=== PATIENT | female | born 1955 | race Caucasian/White ===

== ENCOUNTER 2017-02-02 19:40 | Emergency (ER) | payer MEDICAID ==
[~2017-02-02 19:40] MED LIST: ASPIR 8181 MG PO; GENTAK3 MG/ML OU; GLYBURIDE2.5 MG PO; LISINOPRIL10 MG PO; METFORMIN HCL500 MG PO; PRILOSEC20 MG PO; ZITHROMAX Z-PA250 M2 PO
[2017-02-02 22:29] VITALS: BP 149/79
== END 2017-02-02 22:29 | disposition home or self-care (01) ==
LOC: ED 19:40
DX: L02.31 Cutaneous abscess of buttock (principal); I10 Essential (primary) hypertension; E11.9 Type 2 diabetes mellitus without complications
CPT/HCPCS: J2001

== ENCOUNTER 2018-05-12 12:17 | Emergency (ER) | payer MEDICAID ==
[~2018-05-12] VITALS: Ht 165.1 cm; Wt 93.4 kg
[2018-05-12 12:19] VITALS: BP 156/93; Ht 165.1 cm; Wt 93.4 kg
== END 2018-05-12 13:54 | disposition home or self-care (01) ==
LOC: ED 12:17
DX: H11.9 Unspecified disorder of conjunctiva (principal); I10 Essential (primary) hypertension; E11.9 Type 2 diabetes mellitus without complications

== ENCOUNTER 2018-10-12 10:47 | Emergency (ER) | payer MEDICAID ==
[~2018-10-12] VITALS: Ht 165.1 cm; Wt 96.2 kg
[2018-10-12 10:51] VITALS: Ht 165.1 cm; Wt 96.2 kg
[2018-10-12 13:06] VITALS: BP 133/77
== END 2018-10-12 13:06 | disposition home or self-care (01) ==
LOC: ED 10:47
DX: M54.5 Low back pain (principal); I10 Essential (primary) hypertension; E11.40 Type 2 diabetes mellitus with diabetic neuropathy, unspecified; Z90.710 Acquired absence of both cervix and uterus

== ENCOUNTER 2019-08-14 00:02 | Inpatient (IN) | payer MEDICAID ==
[~2019-08-14] VITALS: Ht 165.1 cm; Wt 95.8 kg
[~2019-08-14 00:02] MED LIST changes: -METFORMIN HCL500 MG PO; +METFORMIN HYDR500 M1 PO
[2019-08-14 00:11] VITALS: Ht 165.1 cm; Wt 95.8 kg
--- NOTE | 2019-08-14 00:14 | NUR ---
EKG IN PROGRESS
--- NOTE | 2019-08-14 00:17 | NUR ---
PT AMBULATED WITH STEADY GAIT TO RESTROOM TO PROVIDE URINE SAMPLE.
--- NOTE | 2019-08-14 00:18 | NUR ---
PT PRESENTED TO ED FOR SOB, EPIGASTRIC ABD PAIN THAT RADIATES TO MIDSTERNAL CHEST AND GENERALIZED BACK SINCE 9 PM. PT STATES PAIN WORSENS WHEN LAYING DOWN. PT STATES "WHEN I GET THE PAIN IT GOES INTO MY BACK AND FEELS LIKE MY LUNGS ARE BEING PRESSED". PT REPORTS FEELING "BLOATED" IN EPIGASTRIC AREA AND STATES "THIS HAS BEEN GOING ON FOR OVER A YEAR, I WENT TO MY DOCTOR AND THEY PUT THE MONITOR ON ME OVERNIGHT. THEY SAID NOTHING WAS WRONG WITH MY HEART". PT DENIES ANY NAUSEA, VOMITING, DIARRHEA. PT A&0X4, SPEAKING FULL CLEAR SENTENCES. PT BREATHING EVEN AND UNLABORED. AWAITING MSE. CM AND [address] PT NOTED NSR ON MONITOR. WILL CONTINUE TO MONITOR.
--- NOTE | 2019-08-14 00:20 | NUR ---
MSE COMPLETED BY MD OLSEN
[2019-08-14 01:07] LABS: BASOPHIL % 0.3 % (0-2); PLATELET COUNT 242 x10^3mcL (130-400); RED CELL DISTRIBUTION WIDTH 12.7 % (11.5-14.5)
[2019-08-14 01:12] LABS: CALCIUM 9.1 mg/dL (8.5-10.1); CARBON DIOXIDE 28.4 mmol/L (21-32); CHLORIDE SERUM 104 mmol/L (98-107); CREATININE SERUM 0.8 mg/dL (0.6-1.0); GFR1 > 60 mL/min; GLUCOSE SERUM 151 mg/dL (74-106); POTASSIUM SERUM 3.4 mmol/L (3.5-5.1); SODIUM SERUM 142 mmol/L (136-145)
[2019-08-14 01:17] LABS: ALBUMIN 3.8 g/dL (3.4-5.0); ALKALINE PHOSPHATASE 85 U/L (46-116); ALT/SGPT 108 U/L (14-59); AST/SGOT 143 U/L (15-37); BILIRUBIN TOTAL 0.83 mg/dL (0.20-1.00); LIPASE 175 IU/L (73-393); TOTAL PROTEIN, SERUM 7.4 g/dL (6.4-8.2)
--- NOTE | 2019-08-14 02:11 | NUR ---
PT STATES NO CHANGE IN PAIN AT THIS TIME. AWARE. AWAITING ORDERS.
--- NOTE | 2019-08-14 03:27 | NUR ---
US TECH AT BEDSIDE
[2019-08-14] MEDS ORDERED: TENORMIN25 MG PO (04:32)
[2019-08-14] MEDS ORDERED: NEU300 PO (04:34)
[2019-08-14] MEDS ORDERED: TYLENOL PO (04:36)
[2019-08-14] MEDS ORDERED: GLUCOTROL5 MG PO (04:41)
[2019-08-14] MEDS ORDERED: PRINIVIL20 MG PO (04:41)
[2019-08-14] MEDS ORDERED: OMEPRAZOLE40 M1 PO (04:42)
--- NOTE | 2019-08-14 05:17 | NUR ---
PT RESTING. DAUGHTER AT BEDSIDE.
--- NOTE | 2019-08-14 06:04 | NUR ---
ABX COMPLETED. PT RESTING WELL SPEAKING FULL CLEAR SENTENCES. STATES 0/10 PAIN. DAUGHTER AT BEDSIDE.
[2019-08-14 07:20] LABS: UA SPECIFIC GRAVITY <=1.005 (1.005-1.035); microscopic required? YES; urine erythrocyte TRACE (NEGATIVE)
--- NOTE | 2019-08-14 07:32 | NUR ---
REPORT GIVEN TO CONSTANTIN RAM. ALL QUESTIONS AND CONCERNS ADDRESSED AT THIS TIME
[2019-08-14 07:36] LABS: AMPHETAMINE QUAL UR NONE DETECTED (See below)
--- NOTE | 2019-08-14 07:45 | NUR ---
PT TRANSPORTED TO TELE FLOOR VIA [facility] ON PORTABLE CM BY ORALIA RAM AND OLIVIA RAM. CONSTANTIN RAM RESUMED CARE OF PT
--- NOTE | 2019-08-14 07:56 | NUR ---
RECEIVED PT FROM ED. A/OX4. DENIES ANY WAYNE OR DIZZZNESS AT THIS TIME. MED SURG. DENIES ANY CHEST PAIN/PRESSURE AT THIS TIME. RESPIRATIONS EQUAL AND UNLABORED ON RA. DENIES ANY SOB. PT STATES CAME IN FOR EPIGASTRIC PAIN, BUT SINCE RECEIVING PAIN MEDS IN ED PAIN HAS RESOLVED. PT DENIES ANY N/V AT THIS TIME. FAMILY AT BEDSIDE. MEDICATION RECONCILLATION UPDATED. WILL CONTINUE TO MONITOR. CALL LIGHT IN REACH. BED IN LOWEST POSITION.
--- NOTE | 2019-08-14 10:57 | NUR ---
PT SITTING UP IN BED. IV TO RAC UNABLE TO FLUSH. IV REMOVED CATHETER INTACT. NEW IV STARTED TO LFA. IV INFILTRATED WHEN FLUIDS WERE INITIATED
--- NOTE | 2019-08-14 12:20 | NUR ---
PT SITTING UP AT BEDSIDE. NO AUCTE RESP DISTRESS NOTED ON RA. PT DENIES ANY ABDOMINAL PAIN AT THIS TIME. PT DENIES ANY N/V. IV TO RFA PATENT AND INFUSING. IV ANTIBIOTICS INFUSING ORDERED. RANDDOM BLOOD GLUCOSE TAKEN WAS 104. FAMILY AT BEDSIDE. WILL CONTINUE TO MONITOR. CALL LIGHT IN REACH. BED IN LOWEST POSITION.
--- NOTE | 2019-08-14 12:33 | NUR ---
REPORT GIVEN TO [facility] IN OR. ALL QUESTIONS AND CONCERNS ADDRESSED. PT BEING TAKEN OFF FLOOR AROUND 1500. LALO WIPES GIVEN TO PT.
[2019-08-14 13:18] VITALS: BP 157/82
[2019-08-14 15:38] VITALS: BP 142/75
--- NOTE | 2019-08-14 15:40 | NUR ---
PT SITTING UP IN BED. NO ACUTE RESP DISTRESS NOTED ON RA. TEMPERATURE CHECKED WAS 102.2. COOLING MEASURES PROVIDED. MEDICATED PER EMAR. IV PATENT AND INFUSING. NO REDNESS OR SWELLING NOTED. WILL CONTINUE TO MONITOR. CALL LIGHT IN REACH. BED IN LOWEST POSITION.
--- NOTE | 2019-08-14 15:42 | NUR ---
PT ASKING TO HAVE FLU VACCINE ADMINISTERED AFTER SURGERY. SPOKE WITH LARISSA RODGERS TO CHANGE ADMINISTRATION TIME, PER VISHAL THERES A 3 HOUR WINDOW AND SHOULD BE OKAY TO GIVE MEDICATION LATER THIS EVENING.
--- NOTE | 2019-08-14 16:57 | NUR ---
PT SITTING UP AT BEDSIDE. NO ACUTE RESP DISTRESS NOTED ON RA. CONSENT FOR SURGERY OBTAINED. CONSENT FOR BLOOD TRANSFUSION OBTAINED. TEMPERATURE REASSESSED WAS 99.7 ORAL. COOLING MEASURES IN PLACE. PT STILL ASKING FOR FLU VACCINE ONCE SURGERY IS COMPLETE. SPOKE WITH PHARMACIST JUANITO TO CHANGE TIME TO LATER TONIGHT. FAMILY AT BEDSIDE. WILL CONTINUE TO MONITOR. CALL LIGHT IN REACH. BED IN LOWEST POSITION.
[2019-08-14 18:07] VITALS: BP 99/50
--- NOTE | 2019-08-14 18:56 | NUR ---
PT SITTING UP IN BED. NO ACUTE RESP DISTRESS NOTED ON RA. PT DENIES ANY PAIN AT THIS TIME. PT DENIES ANY N/V. COOLING MEASURES IN PLACE. IV TO RFA PATENT AND INFUSING. NO REDNESS OR SWELLING NOTED. FAMILY AT BEDSIDE. WILL ENDORSE CARE TO NOVELTY TWISTER OPERATOR RN. CALL LIGHT IN REACH. BED IN LOWEST POSITION.
--- NOTE | 2019-08-14 19:41 | NUR ---
RECEIVED PATIEN TIN BED AWAKE, ALERT AND ORIENTED WITH NO C/O ABDOMINAL DISCOMFORT AT THIS TIME. ABDOMEN ROUND AND NONTENDER WITH ACTIVE BOWEL SOUNDS. BREATHING EASY AND NONLABOR SATTING AT 95% RA. IV TO RFA INTACT AND INFUSING WELL WITH NO SIGN OF INFILTRATION. INSTRUCTED ON NPO FOR POSSIBLE SURGERY,CONSENT DIGNED. IV TO RFA INTACT AND INFUSINGW ELL. WILL CONTINUE TO MONITOR. FANILY MEMBERS AT BEDSIDE.
--- NOTE | 2019-08-14 20:23 | NUR ---
DOWN TO OR VIA GURNEY ACCOMPANIED BY OR STAFF AND FAMILY MEMBERS.
--- NOTE | 2019-08-14 23:39 | NUR ---
BACK FROM SURGERY ACCOMPANIED BY OR NURSES, AWAKE AND ORIENTED. MEDOCATED IN OR FOR POST OPERATIVE PAIN. MORPHINE 2MG IV GIVEN BEFORE PATIENT TRANSPORTED TO HER ROOM. WITH 5 INCISION STAPLED WITH DERMABOND, NO BLEEDONG NOTED. VITAL SIGNS BP-102.68, P-85, R-17, T-97.8, SATTING AT 97% RA, 4/10 PAIN LEVEL. WILL CONTINUE TO MONITOR,
[2019-08-14 23:42] VITALS: BP 102/68
--- NOTE | 2019-08-15 01:41 | NUR ---
APPEAR TO BE SLEEPING THIS TIME BREATHING EASY AND NONLABOR, AT BEDSIDE. WILL CONTINUE TO MONITOR.
--- NOTE | 2019-08-15 03:53 | NUR ---
AWAKE C/O POST OPERATIVE PAIN AT SCALE OF 7/10, MORPHINE 2MG IVP GIVEN PRESCRIBED. WILL CONTINUE TO MONITOR.
--- NOTE | 2019-08-15 04:00 | NUR ---
IV TO RFA INFILTRATED, REINSERTED TO LEFT HAND INTACT AN DINFUSING WELL. PATIENT WALKS TO BATHROOM WITH ASSISTANCE AND VOIDED. IS AT BEDSIDE, INSTRUCTION GIVEN.
--- NOTE | 2019-08-15 05:08 | NUR ---
C/O POST OPERATIVE PAIN X2 THE ENTIRE SHIFT AND MEDICATED PRESCRIBED. ALL NEEDS ATTENDED. CHECKED AT INTERVALS FOR NEEDS AND SAFETY.
[2019-08-15 05:36] VITALS: BP 121/73
[2019-08-15 06:45] LABS: PLATELET COUNT 191 x10^3mcL (130-400); RED CELL DISTRIBUTION WIDTH 12.9 % (11.5-14.5)
[2019-08-15 06:52] LABS: ALKALINE PHOSPHATASE 126 U/L (46-116); ALT/SGPT 370 U/L (14-59); AST/SGOT 223 U/L (15-37); BILIRUBIN TOTAL 5.1 mg/dL (0.20-1.00); CARBON DIOXIDE 25.9 mmol/L (21-32); CHLORIDE SERUM 107 mmol/L (98-107); CREATININE SERUM 0.8 mg/dL (0.6-1.0); GFR1 > 60 mL/min; GLUCOSE SERUM 191 mg/dL (74-106); POTASSIUM SERUM 3.9 mmol/L (3.5-5.1); SODIUM SERUM 142 mmol/L (136-145); TOTAL PROTEIN, SERUM 6.6 g/dL (6.4-8.2)
--- NOTE | 2019-08-15 07:15 | NUR ---
RECEIVED BEDSIDE REPORT FROM SPEED BELT SANDER TENDER NURSE AT THIS TIME. PATIENT RESTING COMFORTABLY IN BED. FAMILY AT BEDSIDE. NO APPARENT DISTRESS OR DISCOMFORT NOTED. BREATHING EVEN AND UNLABORED. NO RESPIRATORY DISTRESS OR DISCOMFORT NOTED. PATIENT DENIES CHEST PAIN/PRESSURE AT THIS TIME. S/P LAP BRYANT WITH X5 INCISIONS WITH SUTURES AND DERMABOND. PATIENT C/O MILD DISCOMFORT, BUT STATES WAS JUST MEDICATED WITH MORPHINE AND PAIN IS TOLERABLE. IV PATENT AND INTACT. ALL QUESTIONS AND CONCERNS ADDRESSED. ALL NEEDS ATTENDED TO. WILL CONTINUE TO MONITOR
[2019-08-15 07:16] LABS: ALBUMIN 3.2 g/dL (3.4-5.0)
[2019-08-15 07:56] LABS: BASOPHIL % 0 % (0-2)
[2019-08-15 09:07] VITALS: BP 140/83
--- NOTE | 2019-08-15 10:03 | NUR ---
MORNING MEDICATIONS ADMINISTERED. PATIENT C/O ABD PAIN AND MEDICATED WITH ULTRAM. PATIENT TOLERATED WELL. NO APPARENT ADVERSE EFFECTS NOTED. ALL NEEDS ATTENDED TO. WILL CONTINUE TO MONITOR
--- NOTE | 2019-08-15 11:06 | NUR ---
PATIENT C/O 7/10 ABD PAIN AT THIS TIME. PATIENT MEDICATED WITH MORPHINE IVP. PATIENT TOLERATED WELL. NO APPARENT ADVERSE EFFECTS NOTED. ALL NEEDS ATTENDED TO. WILL CONTINUE TO MONITOR
--- NOTE | 2019-08-15 12:56 | NUR ---
PATIENT SITTING UP IN BED EATING LUNCH AT THIS TIME. PATIENT TOLERATING DIET WELL. NO APPARENT DISTRESS NOTED. ALL NEEDS ATTENDED TO. WILL CONTINUE TO MONITOR
[2019-08-15 14:47] LABS: ALBUMIN 3.4 g/dL (3.4-5.0); BILIRUBIN DIRECT 1.82 mg/dL (0.0-0.2); BILIRUBIN TOTAL 2.7 mg/dL (0.20-1.00); TOTAL PROTEIN, SERUM 7.2 g/dL (6.4-8.2)
--- NOTE | 2019-08-15 15:35 | NUR ---
SPOKE TO DR HOLDEN AT THIS TIME. PER DR HOLDEN, OBTAIN CONSENT FOR ERCP FOR TONIGHT. PATIENT SPOKE TO DR HOLDEN ON THE PHONE AND CONSENTS TO PROCEDURE. ALL QUESTIONS AND CONCERNS ADDRESSED. ALL NEEDS ATTENDED TO. WILL CONTINUE TO MONITOR
--- NOTE | 2019-08-15 16:50 | NUR ---
PATIENT DOWN FOR ERCP AT THIS TIME. ALL NEEDS ATTENDED TO
[2019-08-15 16:59] VITALS: BP 150/87
--- NOTE | 2019-08-15 18:25 | NUR ---
PATIENT BACK FROM ERCP AT THIS TIME. ALL NEEDS ATTENDED TO. VITAL SIGNS STABLE. WILL CONTINUE TO MONITOR
--- NOTE | 2019-08-15 18:55 | NUR ---
PATIENT RESTING COMFORTABLY IN BED AT THIS TIME. NO APPARENT DISTRESS OR DISCOMFORT NOTED. IV PATENT AND INTACT. X5 INCISIONS TO ABD WITH DERMABOND IN PLACE. ALL QUESTIONS AND CONCERNS ADDRESSED. ALL NEEDS ATTENDED TO. SAFETY PRECAUTIONS MAINTAINED. WILL ENDORSE ALL CARE TO BUSINESS LEADER NURSE
--- NOTE | 2019-08-15 19:45 | NUR ---
PT RECIEVED AAO WITH FAMILY AT THE BEDSIDE,ABDO IS SOFT OBESE WITH ACTIVE BOWEL SOUNDS,PT HAS FIVE INCISION WITH DERMABOUND WITH SITE INTACT,PER PATIENT BURLPING BUT NO PASSING AGS YET,PT BEING ENCOURAGE TO AMBULATE,AND DO THE INCENTIVE SPIROMETER,PT HAS SCDS TO BLE,BED IN THE LOW POSITION AND LOCKED,CALL LIGHT EASY REACHED AND WILL CONTINUE TO MONITOR.
[2019-08-15 19:52] VITALS: BP 143/70
--- NOTE | 2019-08-16 02:30 | NUR ---
PT SLEEPING SOUNDLY AND WILL CONTINUE TO MONITOR.
[2019-08-16 05:34] VITALS: BP 141/82
[2019-08-16 06:21] LABS: BASOPHIL % 0.1 % (0-2); PLATELET COUNT 173 x10^3mcL (130-400); RED CELL DISTRIBUTION WIDTH 12.6 % (11.5-14.5)
[2019-08-16 06:33] LABS: CARBON DIOXIDE 27.3 mmol/L (21-32); CHLORIDE SERUM 104 mmol/L (98-107); CREATININE SERUM 0.6 mg/dL (0.6-1.0); GFR1 > 60 mL/min; GLUCOSE SERUM 126 mg/dL (74-106); POTASSIUM SERUM 3.3 mmol/L (3.5-5.1); SODIUM SERUM 140 mmol/L (136-145)
--- NOTE | 2019-08-16 06:41 | NUR ---
PT HAD A RESTING NIGHT NO CHNAGE AT THIS TIME,WILL CONTIONUE TO MONITOR
--- NOTE | 2019-08-16 07:19 | NUR ---
PATIENT AAOX4. COMPLAINTS OF PAIN TO INCISIONS S/P LAP CHOLECYSTECTOMY. PATIENT IS NPO AT THIS TIME. HIDA SCAN ORDERED AT 0700 08/16/2019. NO ACUTE RESPIRATORY DISTRESS NOTED. REASSURED PATIENT THAT PAIN MED WILL BE GIVEN SOON HIDA SCAN HAS BEEN PERFORMED. PATIENT ON LACTATED RINGER 120 ML/HR. IV TO LEFT HAND, NO INFILTRATION NOTED, PATENT AND INTACT. NO CHEST PAIN OR PRESSURE NOTED. SAFETY PRECAUTION IN PLACE. CALL LIGHT WITHIN REACH. FAMILY AT BEDSIDE. WILL CONTINUE TO MONITOR.
--- NOTE | 2019-08-16 07:22 | NUR ---
PATIENT IS AAOX4. PATIENT IN BED, NO ACUTE RESPIRATORY DISTRESS NOTED. PATIENT IS COMPLAINING OF LEFT UPPER CHEST PAIN THAT RADIATES BELOW THE LEFT SHOULDER. REASSURED PATIENT THAT PAIN MEDICATION WILL BE GIVEN AFTER CHECKING THE ORDER. TROP NEGATIVE. IV TO RAC INTACT. NO INFILTRATION NOTED. SAFETY PRECAUTION IN PLACE. WILL CONTINUE TO MONITOR.
--- NOTE | 2019-08-16 08:24 | NUR ---
PATIENT COMPLAINING OF PAIN TO ABDOMEN S/P LAP BRYANT INCISIONS. NORCO 7.5MG PO GIVEN. TOLERATED WELL. WILL CONTINUE TO MONITOR.
[2019-08-16 08:37] VITALS: BP 174/94
--- NOTE | 2019-08-16 09:39 | NUR ---
SPOKE WITH DR. LINCOLN REGARDING ERCP RESULTS. NO NEW ORDERS AT THIS TIME. WILL CONTINUE TO MONITOR PATIENT.
--- NOTE | 2019-08-16 09:44 | NUR ---
PATIENT IS AMBULATING AROUND THE UNIT. MILD DISCOMFORT TO ABDOMEN, TOLERABLE. PATIENT STATED THAT SHE HAS STARTED TO PASS A LITTLE GAS. EDUCATED THAT AMBULATION WILL STIMULATE BOWEL AND WILL HELP WITH PASSING GAS. PATIENT VERBALIZED UNDERSTANDING. IV REMAINS INTACT AND PATENT. LR RUNNING AT 120 ML/HR. NO ACUTE RESPIRATORY DISTRESS AT THIS TIME. FAMILY AT BEDSIDE. WILL CONTINUE TO MONITOR.
--- NOTE | 2019-08-16 12:12 | NUR ---
DR. PEREZ IS SPEAKING WITH PATIENT ABOUT PLAN OF CARE. PATIENT VERBALIZED UNDERSTANDING. DR. PEREZ ORDERED LIPASE AND LFT AND TO CALL HIM WHEN RESULTS ARE BACK. PATIENT IS STABLE AT THIS TIME. MILD DISCOMFORT TO ABDOMEN, TOLERABLE AND NO NEED FOR PAIN MEDICATION AT THIS TIME. REMAINS ON ROOM AIR, NO RESPIRATORY DISTRESS NOTED. FAMILY AT BEDSIDE. SAFETY PRECAUTION IN PLACE. WILL CONTINUE TO MONITOR.
[2019-08-16 12:33] LABS: ALBUMIN 2.9 g/dL (3.4-5.0); BILIRUBIN DIRECT 4.72 mg/dL (0.0-0.2); BILIRUBIN TOTAL 5.91 mg/dL (0.20-1.00); TOTAL PROTEIN, SERUM 6.1 g/dL (6.4-8.2)
--- NOTE | 2019-08-16 14:40 | NUR ---
PATIENT IS COMPLAINING OF 9/10 PAIN TO ABDOMEN, S/P LAP BRYANT. NORCO 7.5 MG PO GIVEN. TOLERATED WELL. ENCOURAGED PATIENT TO AMBULATE TOLERATED. WILL CONTINUE TO MONITOR.
--- NOTE | 2019-08-16 15:18 | NUR ---
DR. PEREZ MADE AWARE OF PT LIPASE AND LFT RESULTS. NO NEW ORDERS AT THIS TIME. WILL CONTINUE TO MONITOR.
[2019-08-16 17:10] VITALS: BP 143/67
--- NOTE | 2019-08-16 18:47 | NUR ---
PATIENT IN BED. NO ACUTE RESPIRATORY DISTRESS NOTED. TOLERABLE DISCOMFORT TO ABDOMEN. NO NEED FOR PAIN MEDICATION AT THIS TIME. LR RUNNING AT 120ML/HR ORDERED. IV INTACT AND PATENT. NO INFILTRATION NOTED. FAMILY AT BEDSIDE. SAFETY PRECAUTION. CALL LIGHT WITHIN REACH. WILL ENDORSE CARE TO DIRECTOR OF AUDIOLOGY NURSE.
--- NOTE | 2019-08-16 19:15 | NUR ---
PT RECEIVED A/O X4, ABLE TO MAKE NEEDS KNOWN. FAMILY AT BEDSIDE. MED-SURG, PT DENIES ANY CP/PRESSURE. PULSES PALPABLE, NO EDEMA PRESENT. BREATHING IS EVEN AND UNLABORED, NO RESP DISTRESS NOTED. ABD SOFT AND ROUND, BOWEL TONES ACTIVE X4 QUAD, DENIES N/V. S/P LAP BRYANT ON 08/14. ABD INCISIONS X4 WITH SUTURES AND DERMABOND, CRUZITO. VOIDS FREELY, BRP. AMBULATORY WITH STEADY GAIT. PT DENIES HAVING ANY PAIN AT THIS TIME. IVF INFUSING WELL TO , SITE WNL. NO ACUTE DISTRESS NOTED. BED IN LOWEST SETTING, SIDE RAILS UP X2, CALL LIGHT WITHIN REACH. WILL CONT TO MONITOR.
[2019-08-16 20:14] VITALS: BP 139/65
--- NOTE | 2019-08-16 20:42 | NUR ---
PT C/O 8/10 ABD PAIN, PRN NORCO GIVEN ORDERED. WILL CONT TO MONITOR.
--- NOTE | 2019-08-17 04:30 | NUR ---
PT C/O 04/28 ABD PAIN AFTER AMBULATING TO BATHROOM, PRN NORCO GIVEN ORDERED. NO ACUTE DISTRESS NOTED. SPOUSE AT BEDSIDE. WILL CONT TO MONITOR.
[2019-08-17 05:51] VITALS: BP 138/87
--- NOTE | 2019-08-17 06:16 | NUR ---
PT SLEPT WELL THROUGHOUT THE EVENING. BREATHING IS EVEN AND UNLABORED, NO RESP DISTRESS NOTED. PT REPORTS GOOD PAIN RELIEF FROM NORCO AND DENIES HAVING ANY PAIN AT THIS TIME. PT REPORTS PASSING GAS MULTIPLE TIMES DURING THE EVENING, BUT DENIES HAVING A BM. NO ACUTE CHANGES ENCOUNTERED DURING SHIFT. ALL NEEDS MET AND ANTICIPATED. PT COMPLIANT WITH NURSING CARE. SPOUSE AT BEDSIDE. IVF INFUSING WELL, SITE WNL. CALL LIGHT WITHIN REACH. WILL ENDORSE CARE TO AM NURSE.
[2019-08-17 06:22] LABS: ALKALINE PHOSPHATASE 136 U/L (46-116); ALT/SGPT 178 U/L (14-59); AST/SGOT 47 U/L (15-37); BILIRUBIN TOTAL 2.16 mg/dL (0.20-1.00); CALCIUM 8.2 mg/dL (8.5-10.1); CARBON DIOXIDE 29.6 mmol/L (21-32); CHLORIDE SERUM 103 mmol/L (98-107); CREATININE SERUM 0.6 mg/dL (0.6-1.0); GFR1 > 60 mL/min; GLUCOSE SERUM 92 mg/dL (74-106); LIPASE 108 IU/L (73-393); POTASSIUM SERUM 3.4 mmol/L (3.5-5.1); SODIUM SERUM 139 mmol/L (136-145)
[2019-08-17 06:57] LABS: ALBUMIN 2.8 g/dL (3.4-5.0); TOTAL PROTEIN, SERUM 6.1 g/dL (6.4-8.2)
[2019-08-17 07:07] LABS: BASOPHIL % 0.2 % (0-2); PLATELET COUNT 185 x10^3mcL (130-400); RED CELL DISTRIBUTION WIDTH 12.6 % (11.5-14.5)
--- NOTE | 2019-08-17 07:38 | NUR ---
RECEIVED PT FROM FIELD CROP FARM WORKER. PT SITTING UPRIGHT IN BED HAVING BREAKFAST, AOX4, RESP E/U ON RA. DENIES ABD PAIN OR NAUSEA AT THIS TIME. IV TO LAC W/ NO SIGNS OF INFILTRATION, IVF INFUSING WELL. SX INCISIONS TO ABD X5 S/P ERCP W/ DERMABOND CDI. BED IN LOWEST POSITION AND CALL LIGHT WITHIN REACH. WILL CONTINUE TO MONITOR.
[2019-08-17 09:14] VITALS: BP 155/84; BP 172/98
[2019-08-17] MEDS ORDERED: COLACE100 MG PO (10:06)
[2019-08-17] MEDS ORDERED: MOT600 PO (10:07)
[2019-08-17 10:55] VITALS: BP 155/84
--- NOTE | 2019-08-17 10:57 | NUR ---
Intervention 1. Continue on CCHO CL as medically appropriate. 2. If/when medically appropriate, consider initiating CCHO diet per MD discretion.
--- NOTE | 2019-08-17 10:57 | NUR ---
Initial Nutrition Assessment: Dx: epigastric pain, chest pain, abdominal pain, cholecystitis PMHx: HTN, DM2, neuropathy PSHx: none per patient Labs: (08/17) Na 139, K 3.4, Glu 92, BUN 6.0, Cr 0.6, H/H 11. Meds: Colace, D5%, Glucagon diagnostic kit, Glucophage, Glucotrol, Klor-con, Lactated Ringers, Morphine sulfate, Neurotin, [place], Protonix, Tenormin, Zofran, Zosyn Diet: CL CCHO PO intake since admission: (08/16) L: 100%, D: 100% Ht: 165.1 cm / 65 inches / 5'5" Wt: 95.85 kg / 211 pounds BMI: 36.2 kg/m2, obesity class 2 IBW: 125 pounds / 57 kg %IBW: 168% AdjBW: 146 pounds / 67 kg UBW: Unk Age: 63 Food Allergies: NKFA Skin: warm, dry, intact Roland: 21 Edema: none GI: soft, round, tender to MUQ, denies N/V, active BS, c/o on and off epigastric pain Last BM: 08/13/19, soft RD Note (08/17): Per H&P, Pt is a 63 y/o F who has 1 year history of epigastric and abdominal pain. According to Pt, for about a year now she has been having off and on epigastric and abdominal pain. Pain worsens only when she eats greasy foods and/or chile. She reports feeling bloated. RDN visited with Pt. Pt's family and friends were at bedside. Pt reports tolerating clear liquids at this time, feels that she may be able to tolerate full liquids and likely solid foods. Pt say she was craving coffee and toast since that is what she always has for breakfast at home. She says she tries to avoid tomato due to gastric discomfort. RDN encouraged Pt to limit foods that lead to heartburn and gastric discomfort such as greasy foods, hot foods, acidic foods; Pt verbalizes understanding. Pt also says that she'd like to lose wt and is trying to lose ~40#. RDN provided Pt with DM and general healthy eating guidelines. Pt is very motivated. Problem with: N/V/D/C: Constipation; Per Pt she is passing gas but has not had a BM, last BM was Tuesday morning Problems with: Chewing: NO Swallowing: NO Current appetite: GOOD Recent wt change: None; Has been maintaining wt; however, has a goal to lose wt, would like to lose ~40# Vitamin/Supplement use: None Special diet at home: Regular Physical activity: Walking Nutrition education given (specify specific nutrition education and handout given): Pt was educated on general healthy diet with emphasis on methods for weight loss (reduction of 500 kcal/day) and diabetic diet. Pt verbalizes understanding. RDN provided information for [facility] Diet Education Classes. Food-drug interactions? N/A Education given? N/A Estimated Nutritional Needs Based on adjusted body weight (67 kg) Energy: 0316-3390 kcal/day (25-30 kcal/kg for adult maintenance) Protein: 54-67 g/day (0.8-1 g/kg for adult maintenance) Fluid: 0684-0836 mL/day (1 mL/kcal) Nutrition Diagnosis: 1. Inadequate protein/energy intakes related to current diet order of clear liquids as evidenced by Pt meeting < 75% estimated nutrient needs. Intervention 1. Continue on CCHO CL as medically appropriate. 2. If/when medically appropriate, consider initiating CCHO diet per MD discretion. Monitor/Evaluate Goal: PO intake at least 75% of estimated needs Monitor: PO intake, Labs, GI function F/U in 2-3 days as high risk (08/19-)
--- NOTE | 2019-08-17 11:08 | NUR ---
CALLED AND SPOKE TO URIEL(N.P.) AND CONFIRMED WITH HER THAT PT IS OKAY TO DISCHARGE HOME TODAY. CEDRIC RAM ASSIGNED TO THIS PT MADE AWARE OF ABOVE.
--- NOTE | 2019-08-17 12:16 | NUR ---
ACCUCHECK DONE AT THIS TIME, BLOOD GLUCOSE: 59. PT AOX4, DENIES HEADACHE, DROWSINESS/WEAKNESS OR SOB. RESIDENTIAL CONCIERGE URIEL NOTIFIED. D50 GIVEN ORDERED PER EMAR. BED IN LOWEST POSITION AND CALL LIGHT WITHIN REACH. WILL CONTINUE TO MONITOR.
--- NOTE | 2019-08-17 14:30 | NUR ---
PT DISCHARGED. REVIEWED DISCHARGE PACKET W/ PT INCLUDING NEW RX MEDS AND FOLLOW UP INSTRUCTIONS. PT AOX4, RESP E/U ON RA, VS STABLE, MEDICATED ORDER PER EMAR FOR ABD PAIN OVER SX INCISION SITES. IV TO LAC REMOVED, CATH INTACT, GAUZE DRESSING APPLIED. PT AMBULATORY TO [place], ESCORTED BY ANDRIA DAN W/ NO ACUTE INCIDENCE.
== END 2019-08-17 14:30 | disposition home or self-care (01) | DRG 263 ==
LOC: ED 00:02 → MU 05:26 → DU 05:26 → MU 07:55
PROVIDERS: Emergency Medicine; Internal Medicine; Surgery; ADMIT General Practice
PROC: BF141ZZ Fluoroscopy of Gallbladder, Bile Ducts and Pancreatic Ducts using Low Osmolar Contrast (ICD-10-PCS; 2019-08-14)
PROC: 0FT44ZZ Resection of Gallbladder, Percutaneous Endoscopic Approach (ICD-10-PCS; principal; 2019-08-14 18:30)
PROC: 0FC98ZZ Extirpation of Matter from Common Bile Duct, Via Natural or Artificial Opening Endoscopic (ICD-10-PCS; 2019-08-15 16:00)
PROC: 0F7D8DZ Dilation of Pancreatic Duct with Intraluminal Device, Via Natural or Artificial Opening Endoscopic (ICD-10-PCS; 2019-08-15 16:00)
DX: K80.00 Calculus of gallbladder with acute cholecystitis without obstruction (principal); E11.42 Type 2 diabetes mellitus with diabetic polyneuropathy; E87.2 Acidosis; I10 Essential (primary) hypertension; K21.9 Gastro-esophageal reflux disease without esophagitis; Z79.84 Long term (current) use of oral hypoglycemic drugs
CPT/HCPCS: 43262; 82962; 94150; C1769; C2617; C9113; G0378; J0330; J1170; J1200; J1610; J1885; J2175; J2250; J2270; J2405; J2543; J2704; J2710; J3010; J3490; J7030; J7042; J7050; J7120; Q0092; Q9967

== ENCOUNTER 2019-09-05 09:31 | Emergency (ER) | payer MEDICAID ==
[~2019-09-05] VITALS: Ht 165.1 cm; Wt 92.5 kg
[~2019-09-05 09:31] MED LIST changes: +COLACE100 MG PO; +GLUCOTROL5 MG PO; +MOT600 PO; +NEU300 PO; +OMEPRAZOLE40 M1 PO; +PRINIVIL20 MG PO; +TENORMIN25 MG PO; +TYLENOL PO
[2019-09-05 09:36] VITALS: Ht 165.1 cm; Wt 92.5 kg
[2019-09-05 10:11] LABS: CALCIUM 9.9 mg/dL (8.5-10.1); CARBON DIOXIDE 29.8 mmol/L (21-32); CHLORIDE SERUM 104 mmol/L (98-107); CREATININE SERUM 0.7 mg/dL (0.6-1.0); GFR1 > 60 mL/min; GLUCOSE SERUM 109 mg/dL (74-106); POTASSIUM SERUM 4.4 mmol/L (3.5-5.1); SODIUM SERUM 141 mmol/L (136-145)
[2019-09-05 10:16] LABS: ALBUMIN 4.1 g/dL (3.4-5.0); ALKALINE PHOSPHATASE 92 U/L (46-116); ALT/SGPT 35 U/L (14-59); AST/SGOT 19 U/L (15-37); LIPASE 150 IU/L (73-393); TOTAL PROTEIN, SERUM 8.2 g/dL (6.4-8.2)
[2019-09-05 10:33] LABS: BASOPHIL % 0.4 % (0-2); PLATELET COUNT 332 x10^3mcL (130-400); RED CELL DISTRIBUTION WIDTH 12.6 % (11.5-14.5)
[2019-09-05 12:56] VITALS: BP 135/83
== END 2019-09-05 12:46 | disposition home or self-care (01) ==
LOC: ED 09:31
DX: K57.32 Diverticulitis of large intestine without perforation or abscess without bleeding (principal); Z90.49 Acquired absence of other specified parts of digestive tract
CPT/HCPCS: 36415

== ENCOUNTER 2019-10-10 14:17 | Inpatient (IN) | payer MEDICAID ==
[~2019-10-10] VITALS: Ht 165.1 cm; Wt 90.3 kg
[2019-10-10 14:19] VITALS: Ht 165.1 cm; Wt 90.3 kg
[2019-10-10 14:51] LABS: BASOPHIL % 0.3 % (0-2); PLATELET COUNT 261 x10^3mcL (130-400); RED CELL DISTRIBUTION WIDTH 12.4 % (11.5-14.5)
[2019-10-10 15:18] LABS: ALBUMIN 3.9 g/dL (3.4-5.0); CALCIUM 9.4 mg/dL (8.5-10.1); CARBON DIOXIDE 32.6 mmol/L (21-32); CHLORIDE SERUM 105 mmol/L (98-107); CREATININE SERUM 0.7 mg/dL (0.6-1.0); GFR1 > 60 mL/min; GLUCOSE SERUM 139 mg/dL (74-106); POTASSIUM SERUM 3.9 mmol/L (3.5-5.1); SODIUM SERUM 144 mmol/L (136-145); TOTAL PROTEIN, SERUM 7.6 g/dL (6.4-8.2)
[2019-10-10 15:19] LABS: ALKALINE PHOSPHATASE 80 U/L (46-116); ALT/SGPT 24 U/L (14-59); AST/SGOT 15 U/L (15-37); BILIRUBIN TOTAL 0.45 mg/dL (0.20-1.00); LIPASE 134 IU/L (73-393)
[2019-10-10 20:37] VITALS: BP 134/79
[2019-10-11 05:24] VITALS: BP 94/62
[2019-10-11 06:30] LABS: BASOPHIL % 0.3 % (0-2); PLATELET COUNT 216 x10^3mcL (130-400); RED CELL DISTRIBUTION WIDTH 12.5 % (11.5-14.5)
[2019-10-11 07:20] LABS: CALCIUM 8.9 mg/dL (8.5-10.1); CARBON DIOXIDE 30.7 mmol/L (21-32); CHLORIDE SERUM 106 mmol/L (98-107); CREATININE SERUM 0.6 mg/dL (0.6-1.0); GFR1 > 60 mL/min; GLUCOSE SERUM 101 mg/dL (74-106); MAGNESIUM 1.8 mg/dL (1.8-2.4); PHOSPHOROUS 3.7 mg/dL (2.5-4.9); POTASSIUM SERUM 3.8 mmol/L (3.5-5.1); SODIUM SERUM 144 mmol/L (136-145)
[2019-10-11 07:22] LABS: microscopic required? NO
[2019-10-11 07:46] LABS: UA SPECIFIC GRAVITY 1.025 (1.005-1.035); urine erythrocyte NEGATIVE (NEGATIVE)
[2019-10-11 08:49] VITALS: BP 141/82
[2019-10-11 12:21] VITALS: BP 102/58
[2019-10-11] MEDS ORDERED: TUMS PO (13:14)
[2019-10-11 13:17] VITALS: BP 102/58
== END 2019-10-11 14:00 | disposition home or self-care (01) | DRG 241 ==
LOC: ED 14:17 → MU 17:40
PROVIDERS: Emergency Medicine; Internal Medicine; ADMIT Student in an Organized Health Care Education/Training Program
PROC: 0DD78ZX Extraction of Stomach, Pylorus, Via Natural or Artificial Opening Endoscopic, Diagnostic (ICD-10-PCS; principal; 2019-10-11 12:00)
DX: K29.00 Acute gastritis without bleeding (principal); E11.65 Type 2 diabetes mellitus with hyperglycemia; K21.0 Gastro-esophageal reflux disease with esophagitis; I10 Essential (primary) hypertension; Z68.33 Body mass index [BMI] 33.0-33.9, adult; Z79.84 Long term (current) use of oral hypoglycemic drugs; Z79.1 Long term (current) use of non-steroidal anti-inflammatories (NSAID)
CPT/HCPCS: 43235; 82962; 90658; 90732; G0378; J1200; J1610; J2250; J2310; J3010; J3490; Q0092